=== PATIENT | female | born 1975 | race Caucasian/White ===

== ENCOUNTER 2019-04-15 08:59 | Emergency (ER) | payer BC, SELFPAY ==
[2019-04-15 09:00] VITALS: BP 170/114; PULSE 78; RESP 16; TEMP 36.6; O2SAT 98; BMI 36.6
--- NOTE | 2019-04-15 09:24 | ED.VIS.GEN ---
History of Present Illness Chief Complaint: Neuro S/Sx Narrative: Patient presenting for evaluation secondary to right-sided facial weakness numbness and pain. 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 She had onset of symptoms yesterday. She reports watering from her right eye. She denies any visual changes. She denies any numbness or weakness of the arms or legs. She denies any speech difficulty. Patient states that when she had this in the past they thought the potentially was secondary to a zoster infection although she denies that she has any rashes. Pain is mild worse with palpation and located right around the anterior portion of the patient's ear. Past Medical History - Allergies and Home Meds Allergies/Adverse Reactions: Allergies codeine Allergy (Verified 04/15/19 09:00) Hives Penicillins Allergy (Verified 04/15/19 09:00) Swelling Primary Care Physician: Care Physician,No Primary [Primary Care Provider] - Past Medical History: - - Zarco's palsy Smoking Status: Never smoker Review of Systems All systems negative except as indicated Skin: Denies: Rash Neurological: Reports: Headache, Weakness, Parasthesia Physical Exam Vital Signs/Narrative: Vital Signs Temp Pulse Resp BP Pulse Ox 04/15/19 09:00 97.8 F 78 16 170/114 H 98 Inital Vital Signs reviewed: Yes General: Well nourished, Well developed, No Acute Distress Head: Normocephalic, Atraumatic, - - No evidence of vesicular rash of the face or scalp Eyes: Perrl, EOMI ENT: Moist mucous membranes, No rhinorrhea, TM's clear - No evidence of Jairo Haynes syndrome Neck: Supple, Nontender Cardiovascular: Regular rate, Regular rhythm, No murmurs Respiratory: No distress, CTA bilaterally, Chest nontender Abdomen: Soft, Nontender, Nondistended, Normal bowel sounds Back: Nontender, Normal Inspection Extremities: Nontender, No edema Skin: Normal color, No rash Neurological: Alert, Oriented x3, Normal Strength, Normal Sensation, Right side facial droop - Right-sided facial droop involving the forehead Psychological: Normal affect, Normal Mood Diagnostic/Tx/Re-eval - Medical Decision Making Patient presented secondary to facial weakness. Presentation is consistent with Zarco's palsy. Patient will be treated with a course of Valtrex and prednisone. She was recommended meticulous eye care. She will follow-up with primary care ED Disposition - Plan for ED Patient: Disposition: Home or Assisted Living Diagnosis: Zarco's palsy Instructions: Zarco's Palsy Prescriptions: Prednisone 80 mg PO DAILY #28 tab Prescription Printed Valacyclovir HCl [Valtrex] 1,000 mg PO TID #21 tab Prescription Printed Referrals: Cali Crystal MD [NON-STAFF] - 1-2 Weeks
[2019-04-15 10:17] VITALS: BP 157/109; BP 159/107; PULSE 75; RESP 16
[2019-04-15 10:23] VITALS: BMI 36.6
== END 2019-04-15 10:23 | disposition home or self-care (01) ==
LOC: ED 09:40
PROVIDERS: Emergency Provider Emergency Medicine
DX: G51.0 Bell's palsy (principal)
CPT/HCPCS: 99282

== ENCOUNTER 2020-10-07 13:41 | Outpatient (RCR) | payer BC, SELFPAY | END 2020-11-30 23:59 | LOC: IMMUN 13:41 | PROVIDERS: Visit Provider Family Medicine | DX: Z23 Encounter for immunization (principal) | CPT/HCPCS: 0001A; 0002A; 91300 ==

== ENCOUNTER 2022-05-08 06:50 | Emergency (ER) | payer BC, SELFPAY ==
[2022-05-08 06:54] VITALS: BP 137/97; PULSE 101; RESP 18; TEMP 36.3; O2SAT 98; BMI 40.7
--- NOTE | 2022-05-08 07:09 | CT_ITS ---
STUDY: CT ABDOMEN AND PELVIS WITH CONTRAST REASON FOR EXAM: Female, 47 years old. Perirectal laceration, concern for perforation RADIATION DOSAGE (If Supplied By Facility): CTDIvol = ( 17.89 ) mGy, DLP = ( 1313.76 ) mGycm TECHNIQUE: Transaxial images were obtained from the dome of the diaphragm to the symphysis pubis without oral contrast. IV 100mL Isovue-300 was administered. Sagittal and coronal images were reconstructed. Individualized dose optimization techniques were used for this CT. COMPARISON: None. FINDINGS: The visualized lung bases are unremarkable. The visualized portions of the heart are within normal limits. Normal liver. Normal gallbladder and extrahepatic biliary system. Normal spleen. Normal pancreas. Normal bilateral adrenal glands. Normal right kidney. Normal left kidney. Normal visualized stomach. Normal small intestine. There are scattered colonic diverticula consistent with diverticulosis. The appendix is visualized and appears normal. Normal abdominal aorta. Normal inferior vena cava. Normal retroperitoneum. Normal urinary bladder. There is a 7.6 cm x 5.8 cm x 6.2 cm soft tissue density in the right lower hemipelvis. This extends into the right perirectal region. This is suggestive of a hematoma when the patient''s history of, is taken into consideration. Normal abdominal wall. There is a grade 2 anterior listhesis of L5 on S1 with spondylolysis of the pars interarticularis of the L5 vertebrae. CT/Abdomen/Pelvis WITH Contrast IMPRESSION: Findings in keeping with a right-sided pelvic hematoma extending into the right side of the rectum. There is also evidence of increased markings in the medial aspect of the right buttock. No radiopaque foreign body is seen. Electronically Signed: Sekou Hartman MD at 8:32 EST ,
--- NOTE | 2022-05-08 07:19 | EX.ED.GENINJ ---
HPI History of Present Illness Chief Complaint: Laceration Informant: patient Narrative Narrative: Patient is a 47-year-old female with history of hypertension presenting with laceration to her right buttocks. Patient was going down the stairs this morning when she slipped on the past 2 steps. She landed on a metal hussein attached to wheels (a part of the cooler). 1 end of the metal hussein impaled her right buttocks just next to her rectum. She notes that when she took her clothes off the hussein came out as well. She continued to have bleeding and was concerned she might need stitches so she came to the ER. No other complaints at this time. Denies her head. No report of loss of consciousness. Is not on any blood thinners. Tetanus is up-to-date. No associated numbness or tingling. Tetanus Immunization: <5 years [facility] Medical History Hypertension Home Medications doxycycline hyclate 100 mg tablet 100 mg PO BID #20 tabs 05/08/22 [Rx Last Taken Unknown] hydrocodone-acetaminophen 5-325mg 5mg-325mg 1 tab PO Q6H PRN pain 3 days #12 tabs 05/08/22 [Rx Last Taken Unknown] lisinopril 20 mg-hydrochlorothiazide 25 mg tablet 1 tab PO DAILY 05/08/22 [History Last Taken Unknown] potassium chloride 10 mEq tablet,extended release(part/cryst) (Klor-Con M) 10 meq PO BIDCM 05/08/22 [History Last Taken Unknown] Allergy/AdvReac Type Severity Reaction Status Date / Time codeine Allergy Hives Verified 04/15/19 09:00 Penicillins Allergy Swelling Verified 04/15/19 09:00 Surgical History H/O: hysterectomy Social History Smoking Status: Never smoker ROS ROS ED Constitutional Constitutional ED: Denies chills or fever(s) Eyes Eyes: Denies change in vision ENT ENT ED: Denies sore throat Cardiovascular Cardiovascular: Denies chest pain or palpitations Respiratory/Chest Respiratory/Chest: Denies cough Gastrointestinal Gastrointestinal: Denies abdominal pain, constipation, diarrhea, nausea or vomiting Musculoskeletal Musculoskeletal: Denies arthralgias or myalgias Integumentary Reports other Details: Wound to buttocks Neurologic Neurologic: Denies paresthesias or weakness Psychiatric Psychiatric: Denies anxiety Hematologic/Lymphatic Hematologic/Lymphatic: Denies easy bleeding or easy bruising EXAM Physical Exam Const Vital Signs: 05/08/22 06:54 Temperature 97.4 F L Temperature Source Oral Pulse Rate 101 H Respiratory Rate 18 Blood Pressure 137/97 H Blood Pressure Mean 110 Pulse Ox 98 Oxygen Delivery Method Room Air Positive well nourished and well developed General Appearance ED: well developed and NAD HEENT atraumatic Neck full ROM General: Negative for tenderness Chest Wall inspection of chest normal and palpation of chest normal Resp normal respiratory effort and clear to auscultation bilaterally Cardio regular rhythm and no murmurs Rate: regular rate GI normal to inspection, nondistended, normoactive bowel sounds Back/Spine normal to inspection and no thoracic nor lumbar tenderness Extremity normal to inspection and full ROM Neuro oriented x3, moves all extremities and no focal motor deficits Psych mental status grossly normal and thought process normal Skin Skin Narrative: 1 cm irregular laceration of the right buttocks approximately 3 cm lateral to the rectum. There is some mild bleeding present. The wound probes at least 1 cm. MDM MDM MDM Narrative Medical decision making narrative: Patient is evaluated for perirectal pain and injury. CT obtained to make sure she does not have any internal perforation or larger injury given the nature of her injury. CT does not show any retained foreign bodies or free air however there is a right-sided pelvic hematoma extending to the right side of the rectum. Case discussed with surgeon on-call, Dr. Galaviz, who recommends leaving the wound open to encourage further drainage and warm compresses/sitz bath's. Patient is hemodynamically stable in the ER. She has good pain control. Will be discharged home with a short course of [place] as well as a work note. Counseled on return precautions. Given surgery for outpatient follow-up. She verbalizes given understands plan. Discharged home in stable condition. Lab Data Attestation: I reviewed the patient's lab results. Labs: Laboratory Results - last 24 hr 05/08/22 07:36 Sodium 143 Potassium 3.8 Chloride 105 Carbon Dioxide 27.0 Anion Gap 11 BUN 21 H Creatinine 0.73 Estim Creat Clear Calc 77.96 Est GFR (MDRD) Af Amer 109 Est GFR (MDRD) Non-Af 90 BUN/Creatinine Ratio 28.6 H Glucose 104 Calcium 8.8 Radiography Diagnostic Testing: Clinical Impression(s) from Imaging Studies Abdomen/Pelvis CT 05/08/22 07:09 IMPRESSION: Findings in keeping with a right-sided pelvic hematoma extending into the right side of the rectum. There is also evidence of increased markings in the medial aspect of the right buttock. No radiopaque foreign body is seen. Electronically Signed: Sekou Hartman MD at 8:32 EST , Discharge Plan Triage Chief Complaint: Laceration ED Provider: Mary Lopez Dx/Rx/DC Orders Clinical Impression: Traumatic buttock pain, Pelvic haematoma, Laceration of buttock without foreign body Instructions: ED Hematoma, ED Trunk Laceration, All Closures Prescriptions: New doxycycline hyclate 100 mg tablet 100 mg PO BID Qty: 20 0RF hydrocodone-acetaminophen 5-325 mg tablet 1 tab PO Q6H PRN (Reason: pain) 3 Days Qty: 12 0RF No Action lisinopril-hydrochlorothiazide 20-25 mg tablet 1 tab PO DAILY Label Comments: TAKE 1 TABLET BY MOUTH EVERY DAY IN THE MORNING potassium chloride [Klor-Con M10] 10 mEq tablet,ER particles/crystals 10 meq PO BIDCM Label Comments: TAKE 1 TABLET BY MOUTH TWICE A DAY Stand Alone Forms: ED Work / School Excuse Primary Care Provider: Nick Diallo Referrals: Bhargav Galaviz MD [Med Staff - Active Staff] - 3-5 Days if not improving Nick Diallo MD [Primary Care Provider] - Activity Restrictions/Additional Instructions: Use a donut to sit on for comfort. Perform warm compresses and Epson salt sitz bath's throughout the day. Keep the wound open and draining as it heals. If you develop fever, worsening pain or concerns for infection please return to the emergency room for repeat evaluation. You been given surgery for follow-up. You can take [id number] Colace to help prevent straining with stools. Disposition Disposition: Home, Self Care Discharge Date/Time: 05/08/22 09:29
[2022-05-08] MEDS: Acetaminophen 325 MG Tablet 650 MG PO (07:47)
[2022-05-08 07:53] LABS: Anion Gap 11 (5-15); BUN 21 mg/dL (7-18); BUN/Creat Ratio 28.6 RATIO (10-20); Calcium,Total 8.8 mg/dL (8.5-10.1); Chloride 105 mmol/L (98-107); Creatinine, Serum 0.73 mg/dL (0.55-1.02); EST Glomerular Filtration Rate 90 mL/min (>60); Est Glom Filt Rate - Afr Amer 109 mL/min (>60); Estimated Creatinine Clearance 77.96 ml/min; Glucose 104 mg/dL (74-106); Potassium 3.8 mmol/L (3.5-5.1); Sodium Level 143 mmol/L (136-145)
== END 2022-05-08 09:29 | disposition home or self-care (01) ==
PROVIDERS: Emergency Provider Emergency Medicine; PCP Family Medicine; Visit Provider Emergency Medicine
DX: S31.811A Laceration without foreign body of right buttock, initial encounter (principal); I10 Essential (primary) hypertension; W10.9XXA Fall (on) (from) unspecified stairs and steps, initial encounter; Z79.899 Other long term (current) drug therapy
CPT/HCPCS: 74177; 80048; 99284; Q9967; A4216

== ENCOUNTER 2022-05-16 06:39 | Emergency (ER) | payer BC, SELFPAY ==
[2022-05-16 06:39] VITALS: BP 162/90; PULSE 122; RESP 20; TEMP 36.4; O2SAT 97; BMI 40.0
--- NOTE | 2022-05-16 06:50 | CT_ITS ---
EXAM: CT ABDOMEN AND PELVIS WITH INTRAVENOUS CONTRAST CLINICAL INDICATION: Buttock pain TECHNIQUE: Helically acquired images were obtained of the abdomen and pelvis with intravenous contrast. This CT exam was performed using one or more of the following dose reduction techniques: automated exposure control, adjustment of the mA and/or kV according to patient size, and/or use of iterative reconstruction technique. This report was created using [employer] report generation technology. CONTRAST: IV 100mL Isovue-300 COMPARISON: CT Abdomen Pelvis dated 05/08/2022 FINDINGS: LOWER THORAX: Normal. Lung bases are clear. No cardiomegaly. No pericardial effusion. ABDOMEN: LIVER: Normal. Homogeneous. No focal mass. GALLBLADDER AND BILE DUCTS: Normal. No calcified gallstones. No gallbladder distention or wall edema. No intra- or extrahepatic biliary ductal dilation. PANCREAS: Normal. No focal cystic or solid mass. SPLEEN: Normal. Normal size without focal cystic or solid mass. ADRENALS: Normal. No nodules. KIDNEYS AND URETERS: Normal. Normal renal size and position. No hydronephrosis. STOMACH AND BOWEL: No evidence of bowel obstruction or ileus. PELVIS: APPENDIX: Appendix is visualized and normal in appearance. BLADDER: Normal. REPRODUCTIVE: Uterus is absent. SUBPERITONEAL SPACE: Gas and fluid collection noted within the right perirectal space measuring 10.0 x 9.5 cm consistent with abscess. Significant progression from the previously noted 7.6 x 5.8 cm suspected hematoma. The collection displaces the rectum and sigmoid colon to the left of midline. Inferior aspect of the abscess extends nearly to the level of the anus. ABDOMEN and PELVIS: INTRAPERITONEAL SPACE: Normal. No ascites or other fluid collection. No free air. BONES/JOINTS: Bilateral L5 spondylolysis noted with grade 2 spondylolisthesis. Prominent L5-S1 disc degeneration. No suspicious lytic or blastic abnormality. SOFT TISSUES: See above. VASCULATURE: Normal. Abdominal aorta is non-dilated. LYMPH NODES: Normal. No enlarged lymph nodes. CT/Abdomen/Pelvis W IV Cont ONLY IMPRESSION: Interval breakdown of the right pelvic hematoma into 10.0 x 9.5 cm abscess. Collection appears drainable percutaneously through posterior transgluteal approach. Electronically Signed: Lake Cline MD at 8:12 EST ,
--- NOTE | 2022-05-16 06:54 | EDS_ITS ---
HPI <Dr. Santhosh Malagon MD - Last Filed: 05/22/22 15:48> History of Present Illness Chief Complaint: Wound Informant: patient Narrative Narrative: Patient presents with increasing pain toward the right buttock and into the hip area. She had a mechanical slip and fall about 1 week ago. This landed on a metal hussein attached to a wheel. This punctured the buttock on the right side near the rectum. She was seen and evaluated. CAT scan was done. She was placed on antibiotics and pain meds. She has filled those and is taking the antibiotics. She is on doxycycline. She states she was doing well until about 3 days ago. Then the pain started to increase. She states she has felt hot and cold although has never measured a fever. She is also been having nausea and vomiting which is a new feature. She has an allergy to codeine where she has nausea vomiting and swelling of her face but she can tolerate hydrocodone. She is denying any cough urinary symptoms rash or other symptoms that could explain her fevers. PFSH <Dr. Santhosh Malagon MD - Last Filed: 05/22/22 15:48> [facility] Medical History Hypertension Home Medications doxycycline hyclate 100 mg tablet 100 mg PO BID #20 tabs 05/08/22 [Rx Last Taken Unknown] hydrocodone-acetaminophen 5-325mg 5mg-325mg 1 tab PO Q6H PRN pain 3 days #12 tabs 05/08/22 [Rx Last Taken Unknown] lisinopril 20 mg-hydrochlorothiazide 25 mg tablet 1 tab PO DAILY 05/08/22 [History Last Taken Unknown] potassium chloride 10 mEq tablet,extended release(part/cryst) (Klor-Con M) 10 meq PO BIDCM 05/08/22 [History Last Taken Unknown] Allergy/AdvReac Type Severity Reaction Status Date / Time codeine Allergy Hives Verified 05/16/22 06:41 Penicillins Allergy Swelling Verified 05/16/22 06:41 Surgical History H/O: hysterectomy Social History Smoking Status: Never smoker ROS <Dr. Santhosh Malagon MD - Last Filed: 05/22/22 15:48> ROS ED Constitutional Constitutional ED: Reports chills, fever(s) and subjective ENT ENT ED: Denies rhinorrhea or sore throat Cardiovascular Cardiovascular: Denies chest pain or palpitations Respiratory/Chest Respiratory/Chest: Denies cough or dyspnea Gastrointestinal Gastrointestinal: Reports nausea and vomiting; Denies abdominal pain Genitourinary Genitourinary ED: Denies dysuria, hematuria or urinary frequency Musculoskeletal Musculoskeletal: Reports myalgias Integumentary Reports other Details: Suture to right buttock Psychiatric Psychiatric: Denies anxiety Endocrine Endocrinology: Denies polydipsia or polyuria Hematologic/Lymphatic Hematologic/Lymphatic: Denies easy bleeding or easy bruising Allergic/Immunologic Allergic/Immunologic ED: Denies urticaria EXAM <Dr. Santhosh Malagon MD - Last Filed: 05/22/22 15:48> Physical Exam Const Vital Signs: 05/16/22 06:39 05/16/22 08:43 Temperature 97.6 F L Temperature Source Temporal Pulse Rate 122 H 91 Respiratory Rate 20 H 18 Blood Pressure 162/90 H 120/64 Blood Pressure Mean 114 82 Pulse Ox 97 99 Oxygen Delivery Method Room Air Positive well nourished and well developed General Appearance ED: well developed and NAD HEENT Reports moist mucous membranes HEENT Narrative: Prior Zarco's palsy. Eyes EOMs intact bilaterally Neck supple Resp normal respiratory effort and clear to auscultation bilaterally Cardio regular rhythm and no murmurs Rate: tachycardic GI normal to inspection, nondistended, normoactive bowel sounds and non-tender GI Narrative: I am not getting any abdominal tenderness on exam. Bowel sounds are normal. Narrative: Exam nation of the buttock area was done with nurse Marcelle in the room. She has bruising to the right buttock. She has what is consistent with a puncture in that area. But this does not appear to be notably tender. I do not feel any mass within the soft tissue. She states the pain feels as though it is higher up but still near that area. But overall this area looks like it is healing well on the outside. I am not getting any tenderness around the anus. Back/Spine no CVA tenderness Extremity normal to inspection General Extremety ED: Negative for tenderness Neuro Sensorium / Orientation: alert Psych mental status grossly normal Skin Skin Narrative: No rashes other than bruising and puncture near right buttock <Dr. Karolyn Bronson MD - Last Filed: 05/16/22 10:43> Physical Exam Const Vital Signs: 05/16/22 06:39 05/16/22 08:43 Temperature 97.6 F L Temperature Source Temporal Pulse Rate 122 H 91 Respiratory Rate 20 H 18 Blood Pressure 162/90 H 120/64 Blood Pressure Mean 114 82 Pulse Ox 97 99 Oxygen Delivery Method Room Air MDM <Dr. Santhosh Malagon MD - Last Filed: 05/22/22 15:48> MDM Lab Data Labs: Laboratory Results - last 24 hr 05/16/22 05/16/22 05/16/22 07:02 07:02 07:02 WBC 22.3 H RBC 4.06 L Hgb 11.8 L Hct 35.5 L MCV 87.4 MCH 29.1 MCHC 33.2 RDW Std Deviation 38.5 RDW Coeff of Chiquita 11.9 Plt Count 542 H MPV 9.5 Immature Gran % (Auto) 0.600 Neut % (Auto) 84.8 H Lymph % (Auto) 5.2 L [place] % (Auto) 9.0 Eos % (Auto) 0.1 Baso % (Auto) 0.3 Absolute Neuts (auto) 18.9 H Absolute Lymphs (auto) 1.16 Nucleated RBC % 0 Differential Comment SCANNED Diff Path Review May foll Sodium 136 Potassium 2.6 L* Chloride 99 Carbon Dioxide 26.0 Anion Gap 11 BUN 16 Creatinine 0.69 Estim Creat Clear Calc 82.48 Est GFR (MDRD) Af Amer 116 Est GFR (MDRD) Non-Af 96 BUN/Creatinine Ratio 23.1 H Glucose 133 H Lactic Acid 0.9 Calcium 8.8 Urine Color Urine Clarity Urine pH Ur Specific [facility] Urine Protein Urine Glucose (UA) Urine Ketones Urine Occult Blood Urine Nitrite Urine Bilirubin Urine Urobilinogen Ur Leukocyte Esterase Urine RBC Urine WBC Ur Squamous Epith Cells Urine Bacteria Urine Mucus 05/16/22 07:12 WBC RBC Hgb Hct MCV MCH MCHC RDW Std Deviation RDW Coeff of Chiquita Plt Count MPV Immature Gran % (Auto) Neut % (Auto) Lymph % (Auto) [place] % (Auto) Eos % (Auto) Baso % (Auto) Absolute Neuts (auto) Absolute Lymphs (auto) Nucleated RBC % Differential Comment Diff Path Review Sodium Potassium Chloride Carbon Dioxide Anion Gap BUN Creatinine Estim Creat Clear Calc Est GFR (MDRD) Af Amer Est GFR (MDRD) Non-Af BUN/Creatinine Ratio Glucose Lactic Acid Calcium Urine Color Yellow Urine Clarity Sl. Cloudy Urine pH 6.5 Ur Specific [facility] 1.010 Urine Protein 30 H Urine Glucose (UA) Normal Urine Ketones 5 H Urine Occult Blood 250 H Urine Nitrite Negative Urine Bilirubin Negative Urine Urobilinogen 1 H Ur Leukocyte Esterase 25 H Urine RBC 50-100 SEEN Urine WBC 0-5 SEEN Ur Squamous Epith Cells 0-5 SEEN Urine Bacteria RARE Urine Mucus 0 SEEN Radiography Diagnostic Testing: Clinical Impression(s) from Imaging Studies Abdomen/Pelvis CT 05/16/22 06:50 IMPRESSION: Interval breakdown of the right pelvic hematoma into 10.0 x 9.5 cm abscess. Collection appears drainable percutaneously through posterior transgluteal approach. Electronically Signed: Lake Cline MD at 8:12 EST Reading Location ID and State: [facility] / [place] Tel , Service support , <Dr. Karolyn Bronson MD - Last Filed: 05/16/22 10:43> [facility] Lab Data Labs: Laboratory Results - last 24 hr 05/16/22 05/16/22 05/16/22 07:02 07:02 07:02 WBC 22.3 H RBC 4.06 L Hgb 11.8 L Hct 35.5 L MCV 87.4 MCH 29.1 MCHC 33.2 RDW Std Deviation 38.5 RDW Coeff of Chiquita 11.9 Plt Count 542 H MPV 9.5 Immature Gran % (Auto) 0.600 Neut % (Auto) 84.8 H Lymph % (Auto) 5.2 L [place] % (Auto) 9.0 Eos % (Auto) 0.1 Baso % (Auto) 0.3 Absolute Neuts (auto) 18.9 H Absolute Lymphs (auto) 1.16 Nucleated RBC % 0 Differential Comment SCANNED Diff Path Review May foll Sodium 136 Potassium 2.6 L* Chloride 99 Carbon Dioxide 26.0 Anion Gap 11 BUN 16 Creatinine 0.69 Estim Creat Clear Calc 82.48 Est GFR (MDRD) Af Amer 116 Est GFR (MDRD) Non-Af 96 BUN/Creatinine Ratio 23.1 H Glucose 133 H Lactic Acid 0.9 Calcium 8.8 Urine Color Urine Clarity Urine pH Ur Specific [facility] Urine Protein Urine Glucose (UA) Urine Ketones Urine Occult Blood Urine Nitrite Urine Bilirubin Urine Urobilinogen Ur Leukocyte Esterase Urine RBC Urine WBC Ur Squamous Epith Cells Urine Bacteria Urine Mucus 05/16/22 07:12 WBC RBC Hgb Hct MCV MCH MCHC RDW Std Deviation RDW Coeff of Chiquita Plt Count MPV Immature Gran % (Auto) Neut % (Auto) Lymph % (Auto) [place] % (Auto) Eos % (Auto) Baso % (Auto) Absolute Neuts (auto) Absolute Lymphs (auto) Nucleated RBC % Differential Comment Diff Path Review Sodium Potassium Chloride Carbon Dioxide Anion Gap BUN Creatinine Estim Creat Clear Calc Est GFR (MDRD) Af Amer Est GFR (MDRD) Non-Af BUN/Creatinine Ratio Glucose Lactic Acid Calcium Urine Color Yellow Urine Clarity Sl. Cloudy Urine pH 6.5 Ur Specific [facility] 1.010 Urine Protein 30 H Urine Glucose (UA) Normal Urine Ketones 5 H Urine Occult Blood 250 H Urine Nitrite Negative Urine Bilirubin Negative Urine Urobilinogen 1 H Ur Leukocyte Esterase 25 H Urine RBC 50-100 SEEN Urine WBC 0-5 SEEN Ur Squamous Epith Cells 0-5 SEEN Urine Bacteria RARE Urine Mucus 0 SEEN Radiography Diagnostic Testing: Clinical Impression(s) from Imaging Studies Abdomen/Pelvis CT 05/16/22 06:50 IMPRESSION: Interval breakdown of the right pelvic hematoma into 10.0 x 9.5 cm abscess. Collection appears drainable percutaneously through posterior transgluteal approach. Electronically Signed: Lake Cline MD at 8:12 EST , Treatment and Re-Evaluation Narrative: Patient signed out to me pending test results. CBC reveals an elevated white count of 22.3 with 85% neutrophils. Chemistry studies significant for potassium of 2.6. Lactic acid is normal at 0.9. Urinalysis reveals blood but no sign of infection. CT scan of the pelvis with IV contrast reveals interval breakdown of the right pelvic hematoma into a 10 x 9.5 cm abscess. Patient has been given IV potassium along with a dose of IV vancomycin's. I will speak with surgery. Addendum: Surgery felt that this would be amenable to CT-guided drainage. We do not have a radiologist here this week to do this procedure. She requested that we transfer the patient. I spoke with Gage Lofton. Patient be transferred ED to ED for evaluation by surgery to determine appropriate care. Patient has been updated. Discharge Plan Triage Chief Complaint: Wound ED Provider: Santhosh Malagon Dx/Rx/DC Orders Clinical Impression: Puncture wound, Abscess of pelvis Prescriptions: No Action lisinopril-hydrochlorothiazide 20-25 mg tablet 1 tab PO DAILY Label Comments: TAKE 1 TABLET BY MOUTH EVERY DAY IN THE MORNING potassium chloride [Klor-Con M10] 10 mEq tablet,ER particles/crystals 10 meq PO BIDCM Label Comments: TAKE 1 TABLET BY MOUTH TWICE A DAY doxycycline hyclate 100 mg tablet 100 mg PO BID Qty: 20 0RF hydrocodone-acetaminophen 5-325 mg tablet 1 tab PO Q6H PRN (Reason: pain) 3 Days Qty: 12 0RF Primary Care Provider: iNck Diallo Referrals: Nick Diallo MD [Primary Care Provider] - Disposition Disposition: Acute Care Hospital
[2022-05-16] MEDS: Ketorolac 15 MG/ML Vial IV (07:06)
[2022-05-16] MEDS: Ondansetron 4 MG/2 ML Vial IV (07:06)
[2022-05-16 07:07] LABS: Absolute Lymphocyte Count 1.16 X10^3/uL (0.83-4.51); Absolute Neutrophil Count 18.9 X10^3/uL (2.0-7.7); Basophil# 0.06 X10^3/uL; Basophil% 0.3 % (0-1); Eosinophil# 0.02 X10^3/uL; Eosinophils% 0.1 % (0-5); Hematocrit 35.5 % (37-47); Hemoglobin 11.8 g/dL (12.0-15.0); Lymphocyte # 1.16 X10^3/ul (0.83-4.51); Lymphocyte % 5.2 % (19-41); Mean Corp Hgb Conc 33.2 g/dL (32-36); Mean Corpuscular Hgb 29.1 pg (27.0-32.0); Mean Corpuscular Volume 87.4 fL (81-99); Mean Platelet Vol. 9.5 fl (6.2-12.0); Monocyte# 2.01 X10^3/uL; NRBC Flagged by Analyzer 0 % (0-5); Neutrophil % 84.8 % (47-70); POSITIVE DIFFERENTIAL YES; Platelet Count 542 K/mm3 (150-450); RBC Distribution Width CV 11.9 % (11.6-14.6); RBC Distribution Width SD 38.5 fl (35.1-43.9); Red Blood Count 4.06 M/mm3 (4.2-5.4); White Blood Count 22.3 K/mm3 (4.4-11.0)
[2022-05-16 07:10] LABS: Differential Indicated SCAN CRITERIA MET
[2022-05-16 07:21] LABS: Mucous, Urine 0 SEEN /hpf (<or=2+)
[2022-05-16 07:22] LABS: Differential Comment SCANNED
[2022-05-16 07:23] LABS: Color, Urine Yellow (Yellow); Glucose, Dipstick Normal (Normal); Ketone-Dipstick 5 mg/dl (Negative); Leukocyte Esterase-Dipstick 25 /ul (Negative); Nitrite-Dipstick Negative (Negative); Occult Blood-Urine 250 /ul (Negative); Protein-Dipstick 30 mg/dl (Negative); Urine Bilirubin Dipstick Negative (Negative); Urine Clarity Sl. Cloudy (Clear); Urine Urobilinogen 1 mg/dl (Normal); Urine pH 6.5 (5.0 - 8.0)
[2022-05-16 07:33] LABS: Bacteria RARE /hpf (None Seen); Red Blood Cells-Urine 50-100 SEEN /hpf (0-5); Squamous Epithelial Cells - UA 0-5 SEEN /hpf (5-10); White Blood Cells 0-5 SEEN /hpf (0-5)
[2022-05-16 07:39] LABS: Lactic Acid 0.9 mmol/L (0.4-1.9)
[2022-05-16 07:40] LABS: Anion Gap 11 (5-15); BUN 16 mg/dL (7-18); BUN/Creat Ratio 23.1 RATIO (10-20); Calcium,Total 8.8 mg/dL (8.5-10.1); Chloride 99 mmol/L (98-107); Creatinine, Serum 0.69 mg/dL (0.55-1.02); EST Glomerular Filtration Rate 96 mL/min (>60); Est Glom Filt Rate - Afr Amer 116 mL/min (>60); Estimated Creatinine Clearance 82.48 ml/min; Glucose 133 mg/dL (74-106); Potassium 2.6 mmol/L (3.5-5.1); Sodium Level 136 mmol/L (136-145)
[2022-05-16] MEDS: Potassium Chloride 10mEq/100mL 10 MEQ/100 ML IV.SOLN. 100 MEQ IV BOLUS ×4 (08:37→12:11)
[2022-05-16 08:43] VITALS: BP 120/64; PULSE 91; RESP 18; O2SAT 99
--- NOTE | 2022-05-16 09:55 | CCN.REFER ---
CALLED [facility] ABOUT TRANSFER
--- NOTE | 2022-05-16 10:49 | ED.RN ---
CALLED [facility] 1 [facility]
[2022-05-16 11:00] VITALS: BP 124/81; PULSE 104; RESP 16; O2SAT 97
[2022-05-16 12:39] VITALS: BP 122/80; PULSE 100; RESP 16; O2SAT 99
[2022-05-17 09:40] LABS: Pathologist Review Reviewed
== END 2022-05-16 12:43 | disposition short-term general hospital (02) ==
PROVIDERS: Emergency Provider Emergency Medicine; PCP Family Medicine; Visit Provider Emergency Medicine
DX: N73.9 Female pelvic inflammatory disease, unspecified (principal); I10 Essential (primary) hypertension; S31.813D Puncture wound without foreign body of right buttock, subsequent encounter; W17.89XD Other fall from one level to another, subsequent encounter; N94.89 Other specified conditions associated with female genital organs and menstrual cycle
CPT/HCPCS: 74177; 80048; 81001; 83605; 85025; 87811; 96365; 96366; 96368; 96375; 99285; J7040; J7050; Q9967; A4216; J2405